=== PATIENT | male | born 1975 | race Two or more races ===

== ENCOUNTER 2021-08-13 19:30 | Emergency (ER) | payer OTHER ==
[~2021-08-13] VITALS: Ht 170.2 cm; Wt 80.3 kg
[2021-08-13] MEDS ORDERED: SYNTHROID88 MCG (19:48)
== END 2021-08-13 22:17 | disposition home or self-care (01) ==
LOC: ER 19:30
DX: F41.1 Generalized anxiety disorder (principal); R51.9 Headache, unspecified